=== PATIENT | female | born 1980 | race African-American/Black ===

== ENCOUNTER 2020-05-08 11:54 | Emergency (ER) | payer BC ==
--- NOTE | 2020-05-08 12:13 | RADIOLOGY REPORT (SQ) ---
EXAM DESCRIPTION: CT HEAD WITHOUT IMAGES COMPLETED DATE/TIME: 05/08/2020 12:03 pm REASON FOR STUDY: CVA symptoms CODE STROKE COMPARISON: None. TECHNIQUE: Axial images acquired through the brain without intravenous contrast. Images reviewed wi th bone, brain and subdural windows. Additional sagittal and coronal reconstructions were generated. Images stored on PACS. All CT scanners at this facility use dose modulation, iterative reconstruction, and/or weight based d osing when appropriate to reduce radiation dose to as low as reasonably achievable (ALARA). [facility]: Dose Right [facility]: CareDose [facility]: Dose Right [facility]: Teradose 4D [facility]: Smart [employer] RADIATION DOSE: CT Rad equipment meets quality standard of care and radiation dose reduction techniq ues were employed. CTDIvol: 53.2 mGy. DLP: 1097 mGy-cm. mGy. LIMITATIONS: None. FINDINGS: VENTRICLES: Normal size and contour. CEREBRUM: No masses. No hemorrhage. No midline shift. No evidence for acute infarction. Normal gra y/white matter differentiation. No areas of low density in the white matter. CEREBELLUM: No masses. No hemorrhage. No alteration of density. No evidence for acute infarction. EXTRAAXIAL SPACES: No fluid collections. No masses. Incidental empty sella. ORBITS AND GLOBE: No intra- or extraconal masses. Normal contour of globe without masses. CALVARIUM: No fracture. PARANASAL SINUSES: No fluid or mucosal thickening. SOFT TISSUES: No mass or hematoma. OTHER: No other significant finding. IMPRESSION: NORMAL BRAIN CT WITHOUT CONTRAST. EVIDENCE OF ACUTE STROKE: NO. COMMENT: Pertinent positive or negative findings of the imaging study reported as a CRITICAL EXAM t o ED provider at12:05 on 05/08/2020. Category of Critical Exam: Stroke alert. Quality ID # [id number]: Final reports with documentation of one or more dose reduction techniques (e.g., Au tomated exposure control, adjustment of the mA and/or kV according to patient size, use of iterative reconstruction technique) TECHNICAL DOCUMENTATION: JOB ID: [id number] 2010 [employer]- All Rights Reserved Reading location - IP/workstation name: [email or web address]
--- NOTE | 2020-05-08 12:40 | ER Document Report ---
ED General - General Chief Complaint: S/S of Possible Stroke Stated Complaint: FACIAL DROOP Time Seen by Provider: 05/08/20 11:56 Mode of Arrival: Medic Information source: Patient, Emergency Med Personnel - [facility] Notes: Right facial weakness with incomplete right eye closure weakness of the right forehead which started about 7:00 this morning and has gradually progressed. Patient reports a little pain behind her right ear a couple of days ago which has now resolved. She had a mild dull right-sided headache today which is also now pretty well gone. She denies any fever or chills. She is a no rash on her skin. She is never had a thing like this before. The only medical problem she has is GERD. She takes no other medications. She denies any recent acute illnesses. She denies any insect exposure or tick bites. She is otherwise in her usual state of health. - Related Data Allergies/Adverse Reactions: Sulfa (Sulfonamide Antibiotics) Allergy (Verified 05/08/20 12:29) Past Medical History - General Information source: Patient - Social History Smoking Status: Never Smoker Family History: Reviewed & Not Pertinent Patient has homicidal ideation: No - Medical History Medical History: Other Notes: Past medical history as documented in the electronic health record is reviewed. Review of Systems - Review of Systems Notes: All other systems were reviewed and are negative or noncontributory except as noted in the present illness. Physical Exam - Vital signs Vitals: Resp Pulse Ox 10 L 98 05/08/20 12:09 05/08/20 12:09 - Notes Notes: General: This is a well-developed obese black female in no acute distress. Vital signs and nursing documentation are reviewed. HEENT the patient is normocephalic. She has no evidence of head trauma. Extraocular movements are intact but she cannot completely close her right eye. ENT exam is otherwise unremarkable. Neck: Supple nontender no adenopathy. Lungs: Clear to auscultation all moeller. Heart: Regular rate and rhythm no murmur. Abdomen: Obese soft nontender no masses. Extremities: Without clubbing cyanosis or edema. Skin: Warm moist good turgor no rashes. Specifically the patient has no evidence of zoster anywhere in her cervical dermatomes. Neuro: The patient is alert and oriented x3. Cranial nerve exam reveals a facial motor palsy on the right with a right facial droop lack of smile incomplete blinking and paralysis of the forehead all consistent with Lange's palsy. Balance of her cranial nerve exam is intact. Strength is 5/5 in all extremities. Sensation is intact to light touch. Gait and station were not formally tested. Course - Re-evaluation Re-evalutation: 05/08/20 14:23 The patient initially came in as a stroke alert. CT was done immediately and was read as negative. I examined her while she was still on the ambulance cot and felt that her clinical presentation was more consistent with Lange's palsy. Once the CT scan was obtained we no longer pursued to the stroke work-up. The patient's labs EKG and chest x-ray were all unremarkable. She will be disch arged home on standard therapy of prednisone and acyclovir. She is encouraged to establish with primary care follow-up. She was specifically warned that her symptoms may take 4 to 6 weeks before they begin to resolve and could be several months before they resolve completely. She was also counseled regarding using artificial tears during the day and Lacri-Lube as well as taping her eyelid shut at night to protect her eyes. - Vital Signs Vital signs: Temp Pulse Resp BP Pulse Ox 98.5 F 76 20 151/87 H 98 05/08/20 12:30 05/08/20 12:38 05/08/20 14:01 05/08/20 14:01 05/08/20 14:01 - Laboratory Results Result Diagrams: 05/08/20 12:16 05/08/20 12:16 Laboratory Results Interpreted: 05/08/20 05/08/20 12:16 12:16 RDW 14.4 H Sodium 136.3 L Critical Laboratory Results Reviewed: No Critical Results - Radiology Results Critical Radiology Results Reviewed: No Critical Results - EKG Interpretation by Me EKG shows normal: Sinus rhythm Rate: Normal Rhythm: NSR Discharge - Discharge Clinical Impression: Lange's palsy Condition: Good Disposition: HOME, SELF-CARE Instructions: Lange's Palsy ([facility]), Steroid Medication Additional Instructions: Prescriptions for prednisone and acyclovir have been sent to your pharmacy. Please pick these up and take them according to label directions until they are all gone. You should make an appointment with your primary care provider for a follow-up check within 7 to 10 days. Remember to protect your eye by using artificial tear drops during the day. At night you should use Lacri-Lube jelly to lubricate your eye and taped the upper eyelid closed gently to protect your eye from any injury while you are sleeping. Return to the emergency department for reevaluation if you are having worsening symptoms or if any other concerning symptoms develop. Prescriptions: Prednisone [Deltasone 20 mg Tablet] 3 tab PO DAILY 7 Days #20 tablet Valacyclovir HCl [Valacyclovir] 1,000 mg PO TID #20 tablet Forms: Return to Work
[2020-05-08 12:48] LABS: ABSOLUTE EOSINOPHILS # (AUTO) 0.1 10^3/uL (0.0-0.6); ABSOLUTE LYMPHOCYTES (AUTO) 2.7 10^3/uL (0.5-4.7); ABSOLUTE MONOCYTES (AUTO) 0.9 10^3/uL (0.1-1.4); ABSOLUTE NEUT (AUTO) 5.8 10^3/uL (1.7-8.2); BASOPHILS % (AUTO) 0.5 % (0-2); EOSINOPHILS % (AUTO) 1.1 % (0-6); HEMATOCRIT 40.6 % (36.0-47.0); HEMOGLOBIN 13.5 g/dL (12.0-15.5); LYMPHOCYTES % (AUTO) 27.8 % (13-45); MEAN CORPUSCULAR HEMOGLOBIN 28.3 pg (27.0-33.4); MEAN CORPUSCULAR HGB CONC 33.2 g/dL (32.0-36.0); MEAN CORPUSCULAR VOLUME 85 fl (80-97); MONOCYTES % (AUTO) 9.8 % (3-13); PLATELET COUNT 243 10^3/uL (150-450); RED BLOOD COUNT 4.76 10^6/uL (3.72-5.28); RED CELL DISTRIBUTION WIDTH 14.4 % (11.5-14.0); SEGMENTED NEUTROPHILS % (AUTO) 60.8 % (42-78); TOTAL CELLS COUNTED % (AUTO) 100 %; WHITE BLOOD COUNT 9.6 10^3/uL (4.0-10.5)
[2020-05-08 13:06] LABS: ALBUMIN 3.6 g/dL (3.5-5.0); ALKALINE PHOSPHATASE 63 U/L (38-126); ASPARTATE AMINO TRANSFERASE 19 U/L (14-36); BILIRUBIN,DIRECT 0.2 mg/dL (0.0-0.4); BILIRUBIN,TOTAL 0.5 mg/dL (0.2-1.3); BLOOD UREA NITROGEN 10 mg/dL (7-20); CALCIUM 9.1 mg/dL (8.4-10.2); CHLORIDE 104 mmol/L (98-107); GLUCOSE 99 mg/dL (75-110); POTASSIUM 4.4 mmol/L (3.6-5.0); TOTAL PROTEIN 7.3 g/dL (6.3-8.2)
[2020-05-08 13:11] LABS: ANION GAP 5 (5-19); CARBON DIOXIDE 27 mmol/L (22-30)
--- NOTE | 2020-05-08 13:28 | RADIOLOGY REPORT (SQ) ---
EXAM DESCRIPTION: CHEST SINGLE VIEW IMAGES COMPLETED DATE/TIME: 05/08/2020 1:03 pm REASON FOR STUDY: sob COMPARISON: None. EXAM PARAMETERS: NUMBER OF VIEWS: One view. TECHNIQUE: Single frontal radiographic view of the chest acquired. RADIATION DOSE: NA LIMITATIONS: None. FINDINGS: LUNGS AND PLEURA: No opacities, masses or pneumothorax. No pleural effusion. MEDIASTINUM AND HILAR STRUCTURES: No masses. Contour normal. HEART AND VASCULAR STRUCTURES: Heart normal in size. Normal vasculature. BONES: No acute findings. HARDWARE: None in the chest. OTHER: No other significant finding. IMPRESSION: NO ACUTE RADIOGRAPHIC FINDING IN THE CHEST. TECHNICAL DOCUMENTATION: JOB ID: [id number] 2010 [employer]- All Rights Reserved Reading location - IP/workstation name: [email or web address]
[2020-05-08 14:06] VITALS: BP 151/87
--- NOTE | 2020-05-09 00:43 | EKG REPORT ---
SEVERITY:- NORMAL ECG - SINUS RHYTHM : Confirmed by: Mildred Khanna 09-May-2020 00:42:23
== END 2020-05-08 15:01 | disposition home or self-care (01) ==
LOC: ER 11:54
DX: G51.0 Bell's palsy (principal); H92.01 Otalgia, right ear; Z88.2 Allergy status to sulfonamides
CPT/HCPCS: 36415; 70450; 71045; 80053; 85025; 93005; 93010; 99285